=== PATIENT | male | born 1945 | race Two or more races ===

== ENCOUNTER 2019-05-24 19:21 | Emergency (ER) | payer OTHER ==
[~2019-05-24] VITALS: Ht 167.6 cm; Wt 79.4 kg
[2019-05-24 19:49] VITALS: BP 104/63
== END 2019-05-24 19:55 | disposition left against medical advice (07) ==
LOC: EDBD 19:21 → ER 19:23
DX: R42 Dizziness and giddiness (principal); Z53.21 Procedure and treatment not carried out due to patient leaving prior to being seen by health care provider
CPT/HCPCS: 93005

== ENCOUNTER 2020-09-01 17:49 | Emergency (ER) | payer OTHER ==
[~2020-09-01] VITALS: Ht 177.8 cm; Wt 78.9 kg
[2020-09-01 20:14] VITALS: BP 170/92
[2020-09-01] MEDS ORDERED: ACETAMINOPHEN 325 MG TAB PO ONE (20:15)
[2020-09-01] MEDS ORDERED: BACITRACIN TOP OINT 1 UD PKG TOP ONE (21:15)
== END 2020-09-01 21:18 | disposition home or self-care (01) ==
LOC: EDBD 17:49 → EDUNIT# 17:49 → ER 17:49
DX: S06.899A Other specified intracranial injury with loss of consciousness of unspecified duration, initial encounter (principal); S00.81XA Abrasion of other part of head, initial encounter; R41.0 Disorientation, unspecified; I10 Essential (primary) hypertension; E78.5 Hyperlipidemia, unspecified; Z88.1 Allergy status to other antibiotic agents; V19.9XXA Pedal cyclist (driver) (passenger) injured in unspecified traffic accident, initial encounter; Y93.89 Activity, other specified; Y92.89 Other specified places as the place of occurrence of the external cause; Y99.8 Other external cause status
CPT/HCPCS: 70450; 72040